=== PATIENT | male | born 1985 | race Caucasian/White ===

== ENCOUNTER 2021-07-22 12:07 | Emergency (ER) | payer OTHER ==
[~2021-07-22] VITALS: Ht 170.2 cm; Wt 153.0 kg
[2021-07-22 13:10] LABS: BASOPHILS % (AUTO) 1 % (0-1); EOSINOPHILS % (AUTO) 3 % (1-7); LYMPHOCYTES % (AUTO) 13 % (22-44); MEAN CORPUSCULAR HEMOGLOBIN 26.9 pg (27.5-34.5); MEAN CORPUSCULAR HGB CONC 32.4 g/dL (33.2-36.2); MEAN PLATELET VOLUME 8.6 fL (7.4-10.4); MONOCYTES % (AUTO) 8 % (2-9); NEUTROPHILS % (AUTO) 75 % (42-75); PLATELET COUNT 273 x10^3/uL (130-400); RED BLOOD COUNT 5.46 x10^6/uL (4.38-5.82); RED CELL DISTRIBUTION WIDTH 13.6 % (9.4-14.8)
[2021-07-22 13:18] LABS: ALBUMIN 3.4 g/dL (3.4-5.0); CALCIUM 9.2 mg/dL (8.5-10.1); CHLORIDE 107 mmol/L (98-107)
[2021-07-22 13:24] LABS: ALANINE AMINOTRANSFERASE 33 U/L (12-78); ALKALINE PHOSPHATASE 85 U/L (45-117); ANION GAP 8 mmol/L (5-15); BILIRUBIN,TOTAL 0.5 mg/dL (0.2-1.0); CREATININE 0.86 mg/dL (0.7-1.3); TOTAL PROTEIN 7.8 g/dL (6.4-8.2)
--- NOTE | 2021-07-22 15:11 | NUR ---
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
--- NOTE | 2021-07-22 15:27 | NUR ---
AGREE WITH TRIAGE. URINE COLLECTED/IN PROCESS IN LAB. CALL LIGHT WITHIN REACH.
[2021-07-22] MEDS ORDERED: KETOROLAC 30 MG/1 ML ONE (15:37)
[2021-07-22] MEDS ORDERED: ONDANSETRON 2MG/ML, 2ML ONE (15:37)
[2021-07-22 15:56] LABS: MICROSCOPIC INDICATED
[2021-07-22] MEDS ORDERED: ONDANSETRON 2MG/ML, 2ML IVPush ONE (16:00)
[2021-07-22] MEDS ORDERED: KETOROLAC 30 MG/1 ML IVPush ONE (16:00)
--- NOTE | 2021-07-22 16:17 | NUR ---
ALL RESULTS BACK, PT FOR RECHECK.
[2021-07-22] MEDS ORDERED: MORPHINE SULFATE 4 MG/ML, 1ML ONE ×2 (16:33→18:10)
[2021-07-22] MEDS: MORPHINE SULFATE 4 MG/ML, 1ML IVPush PRN ×2 (16:37→18:15)
--- NOTE | 2021-07-22 16:45 | NUR ---
PT MEDICATED FOR UNRELIEVED R FLANK PAIN RATED 9/10. NAUSEA BETTER. PT ASKING ABOUT POSSIBLE US, ERP NOTIFIED.
--- NOTE | 2021-07-22 18:16 | NUR ---
PT REMEDICATED FOR PERSISTENT PAIN. DC INSTRUCTS GIVEN, CONTINUE TO MONITOR FOR PAIN RELIEF THEN DC.
[2021-07-22 18:56] VITALS: BP 145/90
--- NOTE | 2021-07-22 19:00 | NUR ---
Break RN: discharge instructions given. All questions and concerns addressed. Patient ambulatory with a steady gait. Belongings with patient.
== END 2021-07-22 19:05 | disposition home or self-care (01) ==
LOC: ED 12:37
DX: N13.2 Hydronephrosis with renal and ureteral calculous obstruction (principal); R31.9 Hematuria, unspecified
CPT/HCPCS: 36415; 74176; 80053; 81001; 83690; 85025; 96374; 96375; 96376; 99285; J1885; J2270; J2405